=== PATIENT | female | born 1975 | race Asian ===

== ENCOUNTER 2019-08-08 21:16 | Emergency (ER) | payer BC ==
[~2019-08-08] VITALS: Ht 152.4 cm; Wt 47.6 kg
[2019-08-08 21:33] VITALS: Ht 152.4 cm; Wt 47.6 kg
[2019-08-08 21:58] LABS: BASOPHIL % 1.5 % (0-2); PLATELET COUNT 353 x10^3mcL (130-400); RED CELL DISTRIBUTION WIDTH 14.5 % (11.5-14.5)
[2019-08-08 22:02] LABS: CALCIUM 8.4 mg/dL (8.5-10.1); CARBON DIOXIDE 29.1 mmol/L (21-32); CHLORIDE SERUM 105 mmol/L (98-107); CREATININE SERUM 0.7 mg/dL (0.6-1.0); GFR1 > 60 mL/min; GLUCOSE SERUM 89 mg/dL (74-106); POTASSIUM SERUM 3.3 mmol/L (3.5-5.1); SODIUM SERUM 143 mmol/L (136-145)
[2019-08-08 22:08] LABS: ALBUMIN 3.4 g/dL (3.4-5.0); ALKALINE PHOSPHATASE 30 U/L (46-116); ALT/SGPT 13 U/L (14-59); AST/SGOT 8 U/L (15-37); BILIRUBIN TOTAL 0.25 mg/dL (0.20-1.00); TOTAL PROTEIN, SERUM 6.7 g/dL (6.4-8.2)
[2019-08-09 00:35] VITALS: BP 114/62
== END 2019-08-09 00:35 | disposition home or self-care (01) ==
LOC: ED 21:16
PROVIDERS: Emergency Medicine
DX: S01.511A Laceration without foreign body of lip, initial encounter (principal); S09.8XXA Other specified injuries of head, initial encounter; S89.91XA Unspecified injury of right lower leg, initial encounter; R55 Syncope and collapse; X58.XXXA Exposure to other specified factors, initial encounter; Y93.89 Activity, other specified; Y92.89 Other specified places as the place of occurrence of the external cause; Y99.8 Other external cause status
CPT/HCPCS: 36415; 85378; J2001; Q0092